=== PATIENT | male | born 1970 | race Caucasian/White ===

== ENCOUNTER → 2016-10-22 | Outpatient (CLI) | payer OTHER ==
--- NOTE | 2016-10-22 14:51 | REP ---
Clinical: Hypertension and palpitations . Comparison: None . Technique: PA and lateral. Findings: The mediastinum and cardiac silhouette are normal. The lung kat are clear and without acute consolidation, effusion, or pneumothorax. The skeletal structures are intact and normal. Impression: 1. No acute cardiopulmonary process. Signed by Rajiv Hall MD 10/22/2016 02:43 P
[2016-10-22 18:04] LABS: BASO % 0.3 % (0.0-1.0); EOS % 0.3 % (0.0-3.0); LARGE UNSTAINED CELL # 0.1 K/mm3 (0.0-0.4); LARGE UNSTAINED CELL % 0.8 % (0.0-4.0); LYMPH # 1.1 K/mm3 (1.5-4.5); LYMPH % 11.3 % (24.0-44.0); MEAN CORPUSCULAR HEMOGLOBIN 28.5 pg (27.0-33.0); MEAN CORPUSCULAR HGB CONC 32.8 g/dl (32.0-36.5); MEAN CORPUSCULAR VOLUME 86.9 fl (80.0-96.0); MONO # 0.4 K/mm3 (0.0-0.8); MONO % 4.9 % (0.0-5.0); NEUTROPHILS # 7.3 K/mm3 (1.8-7.7); NEUTROPHILS % 82.4 % (36.0-66.0); PLATELET COUNT, AUTOMATED 253 k/mm3 (150-450); RED CELL DISTRIBUTION WIDTH 13.6 % (11.5-14.5); WHITE BLOOD COUNT 8.9 K/mm3 (4.0-10.0)
[2016-10-22 18:29] LABS: ALBUMIN 4.5 GM/DL (3.2-5.2); ALBUMIN/GLOBULIN RATIO 1.25 (1.00-1.93); ALKALINE PHOSPHATASE 80 U/L (45-117); ALT/SGPT 52 U/L (12-78); ANION GAP 10 MEQ/L (8-16); AST/SGOT 24 U/L (15-37); BILIRUBIN,TOTAL 0.5 MG/DL (0.2-1.0); BLOOD UREA NITROGEN 16 MG/DL (7-18); CALCIUM LEVEL 9.6 MG/DL (8.5-10.1); CARBON DIOXIDE LEVEL 25 MEQ/L (21-32); CHLORIDE LEVEL 104 MEQ/L (98-107); CREATININE FOR GFR 1.04 MG/DL (0.70-1.30); GLOMERULAR FILTRATION RATE > 60.0 (>60); GLUCOSE, FASTING 123 MG/DL (70-105); POTASSIUM SERUM 4.3 MEQ/L (3.5-5.1); SODIUM LEVEL 139 MEQ/L (136-145); TOTAL PROTEIN 8.1 GM/DL (6.4-8.2)
== END ==
LOC: M WUC 14:10
PROVIDERS: ATTEND Physician Assistant
DX: I10 Essential (primary) hypertension (principal); R00.2 Palpitations

== ENCOUNTER 2017-10-05 13:19 | Emergency (ER) | payer MEDICAID, OTHER ==
[2017-10-05 12:52] LABS: BASO % 0.3 % (0.0-1.0); EOS % 0.1 % (0.0-3.0); HEMATOCRIT 46.6 % (42.0-52.0); HEMOGLOBIN 15.5 g/dl (14.0-18.0); IMMATURE GRANULOCYTE % 0.3 % (0-3.0); LYMPH # 1.4 10^3/uL (1.5-4.5); LYMPH % 16.2 % (24.0-44.0); MEAN CORPUSCULAR HEMOGLOBIN 28.5 pg (27.0-33.0); MEAN CORPUSCULAR HGB CONC 33.3 g/dl (32.0-36.5); MEAN CORPUSCULAR VOLUME 85.7 fl (80.0-96.0); MONO # 0.5 10^3/uL (0.0-0.8); NEUTROPHILS # 6.6 10^3/uL (1.8-7.7); NEUTROPHILS % 77.1 % (36.0-66.0); PLATELET COUNT, AUTOMATED 251 10^3/uL (150-450); RED BLOOD COUNT 5.44 10^6/uL (4.30-6.10); RED CELL DISTRIBUTION WIDTH 13.8 % (11.5-14.5); WHITE BLOOD COUNT 8.6 10^3/uL (4.0-10.0)
[2017-10-05 13:02] LABS: INR 0.91; PROTHROMBIN TIME 12.3 SECONDS (12.4-14.5)
[2017-10-05 13:03] LABS: PARTIAL THROMBOPLASTIN TIME 26.4 SECONDS (26.8-37.9)
[2017-10-05 13:20] LABS: D-DIMER QUANT 328.7 ng/ml (<500)
[2017-10-05 13:25] LABS: ALBUMIN/GLOBULIN RATIO 0.95 (1.00-1.93); ALKALINE PHOSPHATASE 93 U/L (45-117); ALT/SGPT 44 U/L (12-78); ANION GAP 7 MEQ/L (8-16); AST/SGOT 18 U/L (7-37); BILIRUBIN,DIRECT 0.1 MG/DL (0.0-0.2); BILIRUBIN,TOTAL 0.4 MG/DL (0.2-1.0); BLOOD UREA NITROGEN 11 MG/DL (7-18); CALCIUM LEVEL 8.8 MG/DL (8.5-10.1); CARBON DIOXIDE LEVEL 28 MEQ/L (21-32); CHLORIDE LEVEL 105 MEQ/L (98-107); CK-MB VALUE MASS 1.2 NG/ML (0.0-3.6); CPK CREATINE PHOSPHOKINASE 103 U/L (39-308); CREATININE FOR GFR 0.94 MG/DL (0.70-1.30); GLOMERULAR FILTRATION RATE > 60.0 (>60); GLUCOSE, FASTING 100 MG/DL (70-100); LIPASE 107 U/L (73-393); MB/CK RELATIVE INDEX 1.16 (< OR =4); NT-PRO BNP 143 PG/ML (<125); POTASSIUM SERUM 3.9 MEQ/L (3.5-5.1); SODIUM LEVEL 140 MEQ/L (136-145); TOTAL PROTEIN 8.2 GM/DL (6.4-8.2); TROPONIN I < 0.02 NG/ML (< 0.10)
[2017-10-05] MEDS: ASPIRIN 81 MG CHEW TABLET PO (14:15)
[2017-10-05 19:00] LABS: CPK CREATINE PHOSPHOKINASE 83 U/L (39-308); TROPONIN I < 0.02 NG/ML (< 0.10)
[2017-10-05 19:01] LABS: CK-MB VALUE MASS 1.1 NG/ML (0.0-3.6); MB/CK RELATIVE INDEX 1.32 (< OR =4)
== END 2017-10-05 19:35 | disposition home or self-care (01) ==
LOC: M ED 13:19
DX: R07.9 Chest pain, unspecified (principal); I10 Essential (primary) hypertension; K21.9 Gastro-esophageal reflux disease without esophagitis; Z88.0 Allergy status to penicillin; Z79.899 Other long term (current) drug therapy; Z79.82 Long term (current) use of aspirin
CPT/HCPCS: 71046

== ENCOUNTER → 2017-10-15 | Outpatient (CLI) | payer OTHER | LOC: M PLARAD 10:26 | DX: R42 Dizziness and giddiness (principal) | CPT/HCPCS: 70553 ==

== ENCOUNTER → 2018-05-12 | Outpatient (CLI) | payer BC, OTHER | LOC: M SLEEP 19:54 | DX: G47.33 Obstructive sleep apnea (adult) (pediatric) (principal) | CPT/HCPCS: 95810 ==

== ENCOUNTER → 2018-06-09 | Outpatient (CLI) | payer BC, OTHER | LOC: M SLEEP 20:00 | DX: G47.33 Obstructive sleep apnea (adult) (pediatric) (principal) | CPT/HCPCS: 95811 ==

== ENCOUNTER → 2018-10-02 | Outpatient (CLI) | payer MEDICAID ==
[~2018-10-02] MED LIST: ASPI81TA85 PO; LISI-538; OMEP20CA3
--- NOTE | 2018-10-04 10:29 | SLEEPCENT ---
DATE OF STUDY: 10/02/2018 ORDERED BY: Dr. Damon Nocturnal polysomnography was performed for the titration of pressure therapy in this patient with obstructive sleep apnea syndrome. For testing a ResMed Mirage FX nasal mask of standard size was used; 4 cm of water pressure were applied to the circuit and the lights were extinguished. 7 hours and 44 minutes of data were reviewed. There were 269 minutes of sleep identified. Sleep latency was prolonged at 108 minutes. Rapid eye movement (REM) latency was normal at 90 minutes. Sleep architecture improved later in the study but there was a period wake after sleep onset resulting in reduced sleep efficiency. The electrocardiogram showed a sinus rhythm with an average heart rate of 62 beats per minute. EEG showed reasonably normal waveforms for awake and sleep. Respiratory events were fully palliated with CPAP at a pressure of +7 and remaining measures of sleep physiology were normal. IMPRESSION: Obstructive sleep apnea syndrome (G47.33). RECOMMENDATIONS: Nightly use of pressure therapy 7 cm of water.
== END ==
LOC: M SLEEP 19:40
PROVIDERS: ATTEND Internal Medicine Pulmonary Disease
DX: G47.33 Obstructive sleep apnea (adult) (pediatric) (principal)

== ENCOUNTER → 2021-03-08 | Outpatient (REF) | payer OTHER ==
[~2021-03-08] MED LIST changes: -ASPI81TA85 PO; +ASPI81TA86 PO; -LISI-538; +LISI20TA33; +OMEP1CAP73; -OMEP20CA3
[2021-03-08 17:04] LABS: HEMOGLOBIN A1c 6.1 %
== END ==
LOC: M SFHCCLAY 11:57
PROVIDERS: ATTEND Family Medicine
DX: E11.9 Type 2 diabetes mellitus without complications (principal)

== ENCOUNTER 2021-12-27 09:12 | Emergency (ER) | payer OTHER ==
[~2021-12-27] VITALS: Ht 193 cm; Wt 164.0 kg
[2021-12-27] MEDS ORDERED: MECL-86 (09:37)
[2021-12-27] MEDS ORDERED: ATOR40TA75 (09:37)
[2021-12-27] MEDS ORDERED: HYDR-3490 (09:37)
[2021-12-27] MEDS ORDERED: METF500T13 (09:37)
[2021-12-27] MEDS ORDERED: DOCUSATE SOD LIQ 100MG/10ML UDC PO ONE (11:45)
[2021-12-27 11:53] VITALS: BP 145/92
[2021-12-27 12:12] LABS: BASO % 0.4 % (0.0-1.0); EOS % 0.4 % (0.0-3.0); HEMOGLOBIN 15.5 g/dl (13.5-17.5); LYMPH # 1.7 10^3/uL (1.5-5.0); LYMPH % 20.1 % (24.0-44.0); MEAN CORPUSCULAR HEMOGLOBIN 27.9 pg (27.0-33.0); MEAN CORPUSCULAR VOLUME 84.7 fl (80.0-96.0); MONO # 0.5 10^3/uL (0.0-0.8); MONO % 5.5 % (2.0-8.0); NEUTROPHILS # 6.2 10^3/uL (1.5-8.5); NEUTROPHILS % 73.4 % (36.0-66.0); PLATELET COUNT, AUTOMATED 283 10^3/uL (150-450); RED BLOOD COUNT 5.55 10^6/uL (4.30-6.10); WHITE BLOOD COUNT 8.5 10^3/uL (4.0-10.0)
[2021-12-27 12:30] LABS: CK-MB VALUE MASS 1.8 NG/ML (<3.6); MB/CK RELATIVE INDEX 1.57 (< OR =4)
[2021-12-27 12:36] LABS: ALBUMIN 3.8 GM/DL (3.2-5.2); ALT/SGPT 39 U/L (12-78); BILIRUBIN,DIRECT 0.1 MG/DL (0.0-0.2); BILIRUBIN,TOTAL 0.5 MG/DL (0.2-1.0); BLOOD UREA NITROGEN 14 MG/DL (7-18); CALCIUM LEVEL 9.6 MG/DL (8.5-10.1); CARBON DIOXIDE LEVEL 28 MEQ/L (21-32); CHLORIDE LEVEL 105 MEQ/L (98-107); CREATININE FOR GFR 1.01 MG/DL (0.70-1.30); GLOMERULAR FILTRATION RATE > 60.0 (>56); GLUCOSE, FASTING 115 MG/DL (70-100); LIPASE 76 U/L (73-393); NT-PRO BNP 121 PG/ML (<125); POTASSIUM SERUM 4.3 MEQ/L (3.5-5.1); SODIUM LEVEL 140 MEQ/L (136-145); TOTAL PROTEIN 7.9 GM/DL (6.4-8.2)
[2021-12-27] MEDS ORDERED: NS 1,000 ML IV ONE (13:05)
[2021-12-27] MEDS ORDERED: ISOVUE-370 76% 100ML VIAL As Ordered ONE (13:27)
[2021-12-27 13:46] LABS: CK-MB VALUE MASS 1.7 NG/ML (<3.6); MB/CK RELATIVE INDEX 1.65 (< OR =4)
[2021-12-27] MEDS ORDERED: [UNRECOGNIZED DRUG - OTHER] (14:47)
== END 2021-12-27 14:52 | disposition home or self-care (01) ==
LOC: M ED 09:12
DX: R07.89 Other chest pain (principal); R42 Dizziness and giddiness; R68.89 Other general symptoms and signs; R91.8 Other nonspecific abnormal finding of lung field; E11.9 Type 2 diabetes mellitus without complications; I10 Essential (primary) hypertension; K21.9 Gastro-esophageal reflux disease without esophagitis; Z88.0 Allergy status to penicillin; Z79.899 Other long term (current) drug therapy; Z79.82 Long term (current) use of aspirin; Z79.84 Long term (current) use of oral hypoglycemic drugs
CPT/HCPCS: 71045; 71260; 80048; 80076; 82550; 82553; 83690; 83880; 84443; 85025; 93005; 93041; 94760; 96360; 96361; 99284; Q9967

== ENCOUNTER → 2022-01-10 | Outpatient (REF) | payer OTHER ==
[~2022-01-10] MED LIST changes: +ATOR40TA75; +HYDR-3490; +MECL-86; +METF500T13; +[UNRECOGNIZED DRUG - OTHER]
[2022-01-10 15:48] LABS: APPEARANCE, URINE CLEAR (CLEAR); BACTERIA, URINE AUTO NEGATIVE (NEGATIVE); BILIRUBIN, URINE AUTO NEGATIVE (NEGATIVE); BLOOD, URINE BLOOD NEGATIVE (NEGATIVE); COLOR, URINE YELLOW (YELLOW); GLUCOSE, URINE (UA) AUTO NEGATIVE (NEGATIVE); KETONE, URINE AUTO NEGATIVE (NEGATIVE); LEUKOCYTE ESTERASE, URINE AUTO NEGATIVE (NEGATIVE); NITRITE, URINE AUTO NEGATIVE (NEGATIVE); PROTEIN, URINE AUTO NEGATIVE (NEGATIVE); RBC, URINE AUTO 1 /HPF (0-3); SPECIFIC GRAVITY URINE AUTO 1.017 (1.002-1.035); SQUAMOUS EPITHELIAL CELL UR AU 0 /HPF (0-6); UROBILINOGEN, URINE AUTO 0.2 mg/dL (0.0-2.0); WBC, URINE AUTO 1 /HPF (0-3)
[2022-01-10 16:16] LABS: ALBUMIN 3.7 GM/DL (3.2-5.2); ALT/SGPT 40 U/L (12-78); BILIRUBIN,TOTAL 0.3 MG/DL (0.2-1.0); BLOOD UREA NITROGEN 16 MG/DL (7-18); CALCIUM LEVEL 8.8 MG/DL (8.5-10.1); CARBON DIOXIDE LEVEL 29 MEQ/L (21-32); CHLORIDE LEVEL 103 MEQ/L (98-107); CHOLESTEROL LEVEL 123 MG/DL (<200); CREATININE FOR GFR 0.98 MG/DL (0.70-1.30); GLOMERULAR FILTRATION RATE > 60.0 (>56); GLUCOSE, FASTING 116 MG/DL (70-100); HDL CHOLESTEROL 50 MG/DL (>40); LDL CHOLESTEROL 59 MG/DL (<100); NON-HDL-C 73 MG/DL; POTASSIUM SERUM 3.9 MEQ/L (3.5-5.1); SODIUM LEVEL 141 MEQ/L (136-145); TOTAL PROTEIN 7.6 GM/DL (6.4-8.2); TRIGLYCERIDES LEVEL 70 MG/DL (<150)
[2022-01-10 16:24] LABS: MAU/CREAT RATIO 8.3 MCG/MG (0.0-30.0)
[2022-01-10 17:49] LABS: HEMOGLOBIN A1c 6.3 %
== END ==
LOC: M SFHCCLAY 10:58
PROVIDERS: ATTEND Family Medicine
DX: I10 Essential (primary) hypertension (principal); E11.9 Type 2 diabetes mellitus without complications; R42 Dizziness and giddiness; G47.33 Obstructive sleep apnea (adult) (pediatric); Z99.89 Dependence on other enabling machines and devices; R51.9 Headache, unspecified